=== PATIENT | female | born 1950 | race Caucasian/White ===

== ENCOUNTER → 2020-09-17 | Outpatient (CLI) | payer MEDICARE | LOC: EMI 09-16 15:00 → MRI 09:10 | DX: M48.061 Spinal stenosis, lumbar region without neurogenic claudication (principal); G95.89 Other specified diseases of spinal cord; Z00.00 Encounter for general adult medical examination without abnormal findings; M47.812 Spondylosis without myelopathy or radiculopathy, cervical region; M51.36 Other intervertebral disc degeneration, lumbar region; M51.37 Other intervertebral disc degeneration, lumbosacral region; M43.16 Spondylolisthesis, lumbar region; M41.9 Scoliosis, unspecified; M50.31 Other cervical disc degeneration, high cervical region; M48.02 Spinal stenosis, cervical region; M25.78 Osteophyte, vertebrae; M48.03 Spinal stenosis, cervicothoracic region | CPT/HCPCS: 36415; 72141; 72148; 82565; 84520 ==